=== PATIENT | male | born 1965 | race African-American/Black ===

== ENCOUNTER 2016-12-12 16:23 | Inpatient (IN) | payer OTHER ==
[2016-12-12 18:39] VITALS: BMI 25.8
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
[2016-12-12] MEDS ORDERED: P-EPHED 60MG/TRIPROLIDI 2.5MG TABLET PO PRN (19:55)
[2016-12-12] MEDS ORDERED: hydrOXYzine PAMOATE 50 MG CAPSULE (FP) PO PRN (19:55)
[2016-12-12] MEDS ORDERED: ACETAMINOPHEN 325 MG TABLET (FP) PO PRN (19:55)
[2016-12-12] MEDS ORDERED: MENTHOL/PHENOL 1 EACH UD MM PRN (19:55)
[2016-12-12] MEDS ORDERED: guaiFENesin/D-METHORPHAN HB 10 ML UNIT-DOSE CUPS PO PRN (19:55)
[2016-12-12] MEDS ORDERED: NICOTINE POLACRILEX 4 MG GUM BUC PRN (19:55)
[2016-12-12] MEDS ORDERED: MAGNESIUM HYDROX 2400MG/30ML ORAL SUSPENSION 30 ML CUP PO PRN (19:55)
[2016-12-12] MEDS ORDERED: chlordiazePOXIDE HCL 25 MG CAPSULE PO PRN (19:55)
[2016-12-12] MEDS ORDERED: LOPERAMIDE HCL 2 MG CAPSULE PO PRN (19:55)
[2016-12-12] MEDS ORDERED: NICOTINE 21 MG/24 HOURS TOPICAL PATCH TD PRN (19:55)
[2016-12-12] MEDS ORDERED: MAG HYDROX/AL HYDROX/SIMETH 30 ML UNIT-DOSE CUP PO PRN (19:55)
[2016-12-12] MEDS ORDERED: diphenhydrAMINE HCL 50 MG CAPSULE PO PRN (19:55)
[2016-12-12] MEDS ORDERED: MAGNESIUM CITRATE 300 ML BOTTLE PO PRN (19:55)
[2016-12-12] MEDS ORDERED: ALBUTEROL SO4 2.5/IPRATROPIUM 0.5 INH SOL 3 ML VIAL.NEB. NEB PRN (19:58)
[2016-12-12] MEDS ORDERED: ALBUTEROL SO4 6.7 GM HFA INHALER IH PRN (19:58)
[2016-12-12] MEDS ORDERED: INSULIN (NOVOLOG) ASPART 100 UNITS/ML 10ML VIAL ONE (20:52)
[2016-12-12] MEDS: MONTELUKAST NA 10 MG TABLET PO SCH (21:01)
[2016-12-12] MEDS: THIAMINE HCL 100 MG TABLET (FP) PO SCH (21:01)
[2016-12-12] MEDS: ATORVASTATIN CA 10 MG TABLET (FP) PO SCH (21:01)
[2016-12-12] MEDS: RANITIDINE HCL 150 MG TABLET (FP) PO SCH (21:01)
[2016-12-12] MEDS: GABAPENTIN 300 MG CAPSULE (FP) PO SCH (21:01)
[2016-12-12] MEDS: INSULIN DETEMIR 100 UNITS/ML MDV SQ SCH (21:03)
[2016-12-12] MEDS: INSULIN SLIDING SCALE (NOVOLOG) 1 VIAL SQ SCH (21:03)
[2016-12-12] MEDS: chlordiazePOXIDE HCL 25 MG CAPSULE PO SCH (23:44)
[2016-12-13] MEDS: chlordiazePOXIDE HCL 25 MG CAPSULE PO SCH ×4 (05:38→22:31)
[2016-12-13] MEDS: GABAPENTIN 300 MG CAPSULE (FP) PO SCH ×4 (05:38→22:32)
[2016-12-13] MEDS: INSULIN SLIDING SCALE (NOVOLOG) 1 VIAL SQ SCH ×4 (07:54→22:39)
[2016-12-13] MEDS: PRENATAL VITAMINS W/ FOLIC ACID TABLET (FP) PO SCH (10:09)
[2016-12-13] MEDS: metFORMIN HCL 500 MG TABLET (FP) PO SCH ×2 (10:09→17:33)
[2016-12-13] MEDS: RANITIDINE HCL 150 MG TABLET (FP) PO SCH ×2 (10:09→22:32)
[2016-12-13] MEDS: TAMSULOSIN HCL 0.4 MG CAP.ER.24H (FP) PO SCH (10:09)
[2016-12-13 10:19] LABS: MCH 26.1 pg (25.7-33.7); MCHC 32.6 g/dl (32.0-35.9); MEAN CELL VOLUME 80.3 fl (80-96); MEAN PLT VOLUME 10.9 fl (7.5-11.1); PLATELET COUNT 239 K/MM3 (134-434); RDW 14.5 % (11.9-15.9)
[2016-12-13 10:29] LABS: ALBUMIN 2.5 g/dl (3.4-5.0); ALK PHOS 79 U/L (45-117); ANION GAP 8 (8-16); BILIRUBIN,TOTAL 0.2 mg/dL (0.2-1.0); CALCIUM 9.1 mg/dL (8.5-10.1); CO2 31 mmol/L (21-32); CREATININE 1.4 mg/dL (0.7-1.3); GLUCOSE,RANDOM 87 mg/dL (74-106); SGOT/AST 10 U/L (15-37); SGPT/ALT 15 U/L (12-78); TOT PROT 5.5 g/dl (6.4-8.2)
--- NOTE | 2016-12-13 10:50 | PN ---
S CIWA - CIWA Score Nausea/Vomitin-No Nausea/No Vomiting Muscle Tremors: 4-Moderate,w/Arms Extend Anxiety: 4-Mod. Anxious/Guarded Agitation: 4-Moderately Restless Paroxysmal Sweats: 3 Orientation: 0-Oriented Tacttile Disturbances: 0-None Auditory Disturbances: 0-None Visual Disturbances: 0-None Headache: 0-None Present CIWA-Ar Total Score: 15 BHS Progress Note (SOAP) Subjective: agitation anxiety sweats interrupted sleep tired Objective: 12/13/16 10:49 Vital Signs Temperature 96.8 F L 12/13/16 10:00 Pulse Rate 86 12/13/16 10:00 Respiratory Rate 18 12/13/16 10:00 Blood Pressure 131/82 12/13/16 10:00 O2 Sat by Pulse Oximetry (%) Laboratory Tests 12/12/16 12/12/16 12/13/16 20:01 20:48 05:44 Sodium Potassium Chloride Carbon Dioxide Anion Gap BUN Creatinine Creat Clearance w eGFR POC Glucometer > 600 549 86 Random Glucose Calcium Total Bilirubin AST ALT Alkaline Phosphatase Total Protein Albumin 12/13/16 07:00 Sodium 141 Potassium 3.6 Chloride 102 Carbon Dioxide 31 Anion Gap 8 BUN 15 Creatinine 1.4 H Creat Clearance w eGFR 53.43 POC Glucometer Random Glucose 87 D Calcium 9.1 Total Bilirubin 0.2 D AST 10 L D ALT 15 D Alkaline Phosphatase 79 Total Protein 5.5 L Albumin 2.5 L rest of labs pending awake/alert ambulating no acute distress Assessment: 12/13/16 10:50 withdrawal sx Plan: continue detox increase fluids labs pending
[2016-12-13] MEDS ORDERED: INSULIN (NOVOLOG) ASPART 100 UNITS/ML 10ML VIAL ONE ×2 (11:48→17:00)
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
[2016-12-13] MEDS ORDERED: GABAPENTIN 300 MG CAPSULE (FP) PO SCH (15:04)
[2016-12-13 16:06] LABS: URINE APPEARANCE SLCLOUDY; URINE BILIRUBIN NEGATIVE (NEGATIVE); URINE BLOOD NEGATIVE (NEGATIVE); URINE COLOR YELLOW; URINE GLUCOSE (UA) 3+ (NEGATIVE); URINE KETONE NEGATIVE (NEGATIVE); URINE LEUK ESTERASE NEGATIVE (NEGATIVE); URINE NITRITE NEGATIVE (NEGATIVE); URINE UROBILINOGEN NEGATIVE mg/dL (0.2-1.0)
[2016-12-13 16:12] LABS: URINE PROTEIN 3+ (NEGATIVE)
[2016-12-13 16:20] LABS: URINE MUCUS RARE; URINE RBC 2 /hpf (0-3); URINE WBC 3 /hpf (3-5)
[2016-12-13] MEDS: ATORVASTATIN CA 10 MG TABLET (FP) PO SCH (22:32)
[2016-12-13] MEDS: THIAMINE HCL 100 MG TABLET (FP) PO SCH (22:32)
[2016-12-13] MEDS: INSULIN DETEMIR 100 UNITS/ML MDV SQ SCH (22:33)
[2016-12-13] MEDS: MONTELUKAST NA 10 MG TABLET PO SCH (22:33)
[2016-12-14] MEDS ORDERED: INSULIN (NOVOLOG) ASPART 100 UNITS/ML 10ML VIAL ONE ×2 (05:37→16:35)
[2016-12-14] MEDS: chlordiazePOXIDE HCL 25 MG CAPSULE PO SCH ×3 (05:44→16:39)
[2016-12-14] MEDS: INSULIN SLIDING SCALE (NOVOLOG) 1 VIAL SQ SCH ×4 (07:13→22:48)
[2016-12-14] MEDS: metFORMIN HCL 500 MG TABLET (FP) PO SCH ×2 (07:13→16:36)
--- NOTE | 2016-12-14 09:22 | PN ---
S CIWA - CIWA Score Nausea/Vomitin-No Nausea/No Vomiting Muscle Tremors: 4-Moderate,w/Arms Extend Anxiety: 3 Agitation: 3 Paroxysmal Sweats: 3 Orientation: 0-Oriented Tacttile Disturbances: 0-None Auditory Disturbances: 0-None Visual Disturbances: 0-None Headache: 0-None Present CIWA-Ar Total Score: 13 S Progress Note (SOAP) Subjective: sweats irritable I need to see a dietitian for consultation regarding food I can eat since I wake up so hungry and i am a diabetic. agitation Objective: 12/14/16 09:28 Vital Signs Temperature 97.1 F L 12/14/16 06:19 Pulse Rate 71 12/14/16 06:19 Respiratory Rate 18 12/14/16 06:19 Blood Pressure 143/77 12/14/16 06:19 O2 Sat by Pulse Oximetry (%) Laboratory Tests 12/12/16 12/12/16 12/13/16 20:01 20:48 05:44 WBC RBC Hgb Hct MCV MCH MCHC RDW Plt Count MPV Sodium Potassium Chloride Carbon Dioxide Anion Gap BUN Creatinine Creat Clearance w eGFR POC Glucometer > 600 549 86 Random Glucose Calcium Total Bilirubin AST ALT Alkaline Phosphatase Total Protein Albumin Urine Color Urine Appearance Urine pH Ur Specific [place] Urine Protein Urine Glucose (UA) Urine Ketones Urine Blood Urine Nitrite Urine Bilirubin Urine Urobilinogen Ur Leukocyte Esterase Urine RBC Urine WBC Ur Epithelial Cells Urine Mucus RPR Titer 12/13/16 12/13/16 12/13/16 07:00 07:00 07:00 WBC 8.0 RBC 4.84 Hgb 12.7 D Hct 38.9 MCV 80.3 MCH 26.1 MCHC 32.6 RDW 14.5 Plt Count 239 MPV 10.9 Sodium 141 Potassium 3.6 Chloride 102 Carbon Dioxide 31 Anion Gap 8 BUN 15 Creatinine 1.4 H Creat Clearance w eGFR 53.43 POC Glucometer Random Glucose 87 D Calcium 9.1 Total Bilirubin 0.2 D AST 10 L D ALT 15 D Alkaline Phosphatase 79 Total Protein 5.5 L Albumin 2.5 L Urine Color Urine Appearance Urine pH Ur Specific [place] Urine Protein Urine Glucose (UA) Urine Ketones Urine Blood Urine Nitrite Urine Bilirubin Urine Urobilinogen Ur Leukocyte Esterase Urine RBC Urine WBC Ur Epithelial Cells Urine Mucus RPR Titer Nonreactive 12/13/16 12/13/16 12/14/16 10:50 11:43 05:11 WBC RBC Hgb Hct MCV MCH MCHC RDW Plt Count MPV Sodium Potassium Chloride Carbon Dioxide Anion Gap BUN Creatinine Creat Clearance w eGFR POC Glucometer 265 277 Random Glucose Calcium Total Bilirubin AST ALT Alkaline Phosphatase Total Protein Albumin Urine Color Yellow Urine Appearance Slcloudy Urine pH 5.0 Ur Specific [place] >= 1.030 H Urine Protein 3+ H Urine Glucose (UA) 3+ H Urine Ketones Negative Urine Blood Negative Urine Nitrite Negative Urine Bilirubin Negative Urine Urobilinogen Negative Ur Leukocyte Esterase Negative Urine RBC 2 Urine WBC 3 Ur Epithelial Cells Rare Urine Mucus Rare RPR Titer repeat u/a awake/alert ambulating no acute distress Assessment: 12/14/16 09:29 withdrawal sx Plan: continue detox increase fluids dietary consult ordered glucerna with meals lactaid milk
[2016-12-14] MEDS: GABAPENTIN 300 MG CAPSULE (FP) PO SCH ×2 (10:31→22:49)
[2016-12-14] MEDS: TAMSULOSIN HCL 0.4 MG CAP.ER.24H (FP) PO SCH (10:31)
[2016-12-14] MEDS: PRENATAL VITAMINS W/ FOLIC ACID TABLET (FP) PO SCH (10:31)
[2016-12-14] MEDS: RANITIDINE HCL 150 MG TABLET (FP) PO SCH ×2 (10:31→22:49)
--- NOTE | 2016-12-14 20:03 | EKG ---
Test Reason : Blood Pressure : / mmHG Vent. Rate : 084 BPM Atrial Rate : 084 BPM P-R Int : 118 ms QRS Dur : 094 ms QT Int : 450 ms P-R-T Axes : 050 031 090 degrees QTc Int : 531 ms NORMAL SINUS RHYTHM VOLTAGE CRITERIA FOR LEFT VENTRICULAR HYPERTROPHY PROLONGED QT ABNORMAL ECG NO PREVIOUS ECGS AVAILABLE Confirmed by LUPE LEMUS MD ([id number]) on 12/14/2016 8:02:24 PM Referred By: Chandana Gary Confirmed By:LUPE LEMUS MD
[2016-12-14] MEDS: THIAMINE HCL 100 MG TABLET (FP) PO SCH (22:49)
[2016-12-14] MEDS: ATORVASTATIN CA 10 MG TABLET (FP) PO SCH (22:49)
[2016-12-14] MEDS: chlordiazePOXIDE 5 MG CAPSULE PO SCH (22:49)
[2016-12-14] MEDS: MONTELUKAST NA 10 MG TABLET PO SCH (22:49)
[2016-12-14] MEDS: INSULIN DETEMIR 100 UNITS/ML MDV SQ SCH (22:50)
[2016-12-15] MEDS: chlordiazePOXIDE 5 MG CAPSULE PO SCH ×3 (05:24→18:29)
[2016-12-15] MEDS: metFORMIN HCL 500 MG TABLET (FP) PO SCH ×2 (07:30→18:29)
[2016-12-15] MEDS: INSULIN SLIDING SCALE (NOVOLOG) 1 VIAL SQ SCH ×4 (07:30→22:10)
[2016-12-15] MEDS: TAMSULOSIN HCL 0.4 MG CAP.ER.24H (FP) PO SCH (09:46)
[2016-12-15] MEDS: GABAPENTIN 300 MG CAPSULE (FP) PO SCH ×2 (09:47→22:04)
[2016-12-15] MEDS: RANITIDINE HCL 150 MG TABLET (FP) PO SCH ×2 (09:47→22:04)
[2016-12-15] MEDS: PRENATAL VITAMINS W/ FOLIC ACID TABLET (FP) PO SCH (09:47)
--- NOTE | 2016-12-15 10:49 | PN ---
BHS Progress Note (SOAP) Subjective: sweats anxious Objective: 12/15/16 10:48 Vital Signs Temperature 97.7 F 12/15/16 10:31 Pulse Rate 90 12/15/16 10:31 Respiratory Rate 16 12/15/16 10:31 Blood Pressure 143/88 12/15/16 10:31 O2 Sat by Pulse Oximetry (%) awake/alert ambulating no acute distress Assessment: 12/15/16 10:49 mild withdrawal sx Plan: continue detox increase fluids d/c in am
[2016-12-15] MEDS ORDERED: INSULIN (NOVOLOG) ASPART 100 UNITS/ML 10ML VIAL ONE ×2 (12:08→22:09)
[2016-12-15] MEDS: MONTELUKAST NA 10 MG TABLET PO SCH (22:04)
[2016-12-15] MEDS: INSULIN DETEMIR 100 UNITS/ML MDV SQ SCH (22:04)
[2016-12-15] MEDS: THIAMINE HCL 100 MG TABLET (FP) PO SCH (22:04)
[2016-12-15] MEDS: chlordiazePOXIDE HCL 10 MG CAPSULE PO SCH (22:04)
[2016-12-15] MEDS: ATORVASTATIN CA 10 MG TABLET (FP) PO SCH (22:04)
[2016-12-16] MEDS: metFORMIN HCL 500 MG TABLET (FP) PO SCH (06:46)
[2016-12-16] MEDS: chlordiazePOXIDE HCL 10 MG CAPSULE PO SCH (06:46)
[2016-12-16] MEDS: INSULIN SLIDING SCALE (NOVOLOG) 1 VIAL SQ SCH (06:47)
--- NOTE | 2016-12-16 10:06 | DS ---
[facility] Detox Discharge Summary Admission Date: 12/12/16 Discharge Date: 12/16/16 - History Present History: Alcohol Dependence, Cannabis Dependence, Cocaine Dependence - Physical Exam Results Vital Signs: Vital Signs Temperature 97.7 F 12/16/16 06:00 Pulse Rate 78 12/16/16 07:30 Respiratory Rate 18 12/16/16 07:30 Blood Pressure 146/85 12/16/16 07:30 O2 Sat by Pulse Oximetry (%) - Treatment Hospital Course: Detox Protocol Followed, Detoxed Safely, Responded well, Discharged Condition Good, Rehab Referral Accepted - Medication Discharge Medications: Ambulatory Orders Gemfibrozil [Lopid -] 600 mg PO BID 03/30/13 Metformin HCl [Glucophage] 1,000 mg PO BID 03/30/13 Montelukast Na [Singulair -] 10 mg PO HS 03/30/13 Diltiazem HCl [Cardizem Cd] 240 mg PO DAILY #30 cap.er.24h 08/28/13 Albuterol Sulfate Inhaler - [Ventolin HFA Inhaler -] 2 inh PO Q4H PRN 01/15/14 Insulin Glargine,Hum.rec.anlog [Lantus Solostar PEN -] 50 units SQ HS 01/15/14 Omeprazole [Prilosec (RX)] 40 mg PO DAILY 01/15/14 Gabapentin [Neurontin -] 900 mg PO Q8H 03/15/14 Glipizide [Glucotrol -] 10 mg PO BID 03/15/14 Hydrochlorothiazide [Hctz -] 25 mg PO DAILY 03/15/14 Salmeterol/Fluticasone [Advair 500Mcg/50Mcg] 1 inh PO BID 03/15/14 Tiotropium [place] [Spiriva -] 2 inh PO DAILY 03/15/14 Clonidine HCl [Catapres] 0.2 mg PO BID 07/08/15 Insulin (Novolog) [Novolog] 14 units SQ AC 07/08/15 Loratadine [Claritin -] 10 mg PO DAILY PRN 07/08/15 - Diagnosis (1) Alcohol dependence with uncomplicated withdrawal Current Visit: Yes Status: Chronic (2) Nicotine dependence Current Visit: Yes Status: Chronic Qualifiers: Nicotine product type: cigarettes Substance use status: uncomplicated Qualified Code(s): F17.210 - Nicotine dependence, cigarettes, uncomplicated (3) Asthma Current Visit: Yes Status: Chronic Qualifiers: Asthma severity: mild persistent Asthma complication type: uncomplicated Qualified Code(s): J45.30 - Mild persistent asthma, uncomplicated (4) BPH (benign prostatic hyperplasia) Current Visit: Yes Status: Chronic Qualifiers: Lower urinary tract symptom presence: symptoms present Lower urinary tract symptom detail: post-void dribbling Qualified Code(s): N40.1 - Benign prostatic hyperplasia with lower urinary tract symptoms; R35.0 - Frequency of micturition (5) COPD (chronic obstructive pulmonary disease) Current Visit: Yes Status: Chronic Qualifiers: COPD type: emphysema Emphysema type: unilateral Qualified Code(s ): J43.0 - Unilateral pulmonary emphysema [MacLeod's syndrome] (6) Cocaine dependence, uncomplicated Current Visit: Yes Status: Chronic (7) Essential hypertension Current Visit: Yes Status: Chronic (8) Gastroesophageal reflux disease Current Visit: Yes Status: Chronic Qualifiers: Esophagitis presence: without esophagitis Qualified Code(s): K21.9 - Gastro-esophageal reflux disease without esophagitis - AMA Did Patient Leave Against Medical Advice: [facility] ([facility])
[2016-12-16] MEDS: RANITIDINE HCL 150 MG TABLET (FP) PO SCH (10:25)
[2016-12-16] MEDS: GABAPENTIN 300 MG CAPSULE (FP) PO SCH (10:26)
[2016-12-16] MEDS: TAMSULOSIN HCL 0.4 MG CAP.ER.24H (FP) PO SCH (10:27)
[2016-12-16] MEDS: PRENATAL VITAMINS W/ FOLIC ACID TABLET (FP) PO SCH (10:27)
[2016-12-16 10:30] VITALS: BP 158/89; PULSE 95; TEMP 98.2
== END 2016-12-16 10:43 | disposition home or self-care (01) | DRG 897 ==
LOC: YASAS 16:23 → Y6N 19:54
PROVIDERS: ADMIT Internal Medicine; ATTEND Internal Medicine
PROC: HZ2ZZZZ Detoxification Services for Substance Abuse Treatment (ICD-10-PCS; principal; 2016-12-12)
DX: F10.230 Alcohol dependence with withdrawal, uncomplicated (principal); F14.20 Cocaine dependence, uncomplicated; F17.210 Nicotine dependence, cigarettes, uncomplicated; J43.0 Unilateral pulmonary emphysema [MacLeod's syndrome]; J45.30 Mild persistent asthma, uncomplicated; N40.1 Benign prostatic hyperplasia with lower urinary tract symptoms; R35.0 Frequency of micturition; I10 Essential (primary) hypertension; K21.9 Gastro-esophageal reflux disease without esophagitis; E11.42 Type 2 diabetes mellitus with diabetic polyneuropathy; E78.00 Pure hypercholesterolemia, unspecified; G62.9 Polyneuropathy, unspecified; M54.5 Low back pain; R00.0 Tachycardia, unspecified; R26.2 Difficulty in walking, not elsewhere classified; H26.9 Unspecified cataract; Z99.89 Dependence on other enabling machines and devices; Z79.4 Long term (current) use of insulin; Z79.84 Long term (current) use of oral hypoglycemic drugs; Z88.8 Allergy status to other drugs, medicaments and biological substances; Z88.6 Allergy status to analgesic agent; Z91.14 Patient's other noncompliance with medication regimen
CPT/HCPCS: 36415; 80053; 81003; 81015; 85027; 86593; 93005; 93010

== ENCOUNTER 2018-05-29 14:14 | Inpatient (IN) | payer OTHER ==
[2018-05-29 17:32] VITALS: BMI 28.3
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
[2018-05-29] MEDS ORDERED: MAG HYDROX/AL HYDROX/SIMETH 30 ML UNIT-DOSE CUP PO PRN (19:50)
[2018-05-29] MEDS ORDERED: diazePAM 5 MG TABLET PO PRN (19:50)
[2018-05-29] MEDS ORDERED: P-EPHED 60MG/TRIPROLIDI 2.5MG TABLET PO PRN (19:50)
[2018-05-29] MEDS ORDERED: MENTHOL/PHENOL 1 EACH UD MM PRN (19:50)
[2018-05-29] MEDS ORDERED: ACETAMINOPHEN 325 MG TABLET (FP) PO PRN (19:50)
[2018-05-29] MEDS ORDERED: MAGNESIUM CITRATE 300 ML BOTTLE PO PRN (19:50)
[2018-05-29] MEDS ORDERED: MAGNESIUM HYDROX 2400MG/30ML ORAL SUSPENSION 30 ML CUP PO PRN (19:50)
[2018-05-29] MEDS ORDERED: guaiFENesin/D-METHORPHAN HB 10 ML UNIT-DOSE CUPS PO PRN (19:50)
[2018-05-29] MEDS ORDERED: NICOTINE POLACRILEX 2 MG GUM BC PRN (19:50)
[2018-05-29] MEDS ORDERED: ALBUTEROL SO4 0.083% IH SOL 2.5 MG/3 ML VIAL.NEB. NEB PRN (20:08)
[2018-05-29] MEDS: BUDESONIDE/FORMETEROL FUMARATE 160/4.5 mcg INHALER IH SCH (21:51)
[2018-05-29] MEDS: metFORMIN HCL 500 MG TABLET (FP) PO SCH (21:51)
[2018-05-29] MEDS: diazePAM 5 MG TABLET PO SCH (21:52)
[2018-05-29] MEDS: MONTELUKAST NA 10 MG TABLET PO SCH (21:52)
[2018-05-29] MEDS: CLOPIDOGREL BISULFATE 75 MG TABLET (FP) PO SCH (21:52)
[2018-05-29] MEDS: CYCLOBENZAPRINE HCL 5 MG TABLET PO PRN (21:53)
[2018-05-29] MEDS: cloNIDine HCL 0.1 MG TABLET PO PRN (21:54)
[2018-05-29] MEDS: THIAMINE HCL 100 MG TABLET (FP) PO SCH (21:54)
[2018-05-29] MEDS: ALBUTEROL SO4 8 GM HFA INHALER IH PRN (21:59)
[2018-05-29] MEDS ORDERED: MELATONIN 5 MG TABLETS PO PRN (22:00)
[2018-05-29] MEDS: INSULIN (LEVEMIR) 100 UNITS/ML UNITS SQ SCH (22:07)
[2018-05-29] MEDS: INSULIN SLIDING SCALE (NOVOLOG) 1 VIAL SQ SCH (22:08)
[2018-05-30] MEDS: diazePAM 5 MG TABLET PO SCH ×3 (05:46→22:17)
[2018-05-30] MEDS: INSULIN SLIDING SCALE (NOVOLOG) 1 VIAL SQ SCH ×4 (07:09→22:21)
[2018-05-30] MEDS: PANTOPRAZOLE 40 MG TABLET (FP) PO SCH (07:09)
[2018-05-30] MEDS: metFORMIN HCL 500 MG TABLET (FP) PO SCH ×2 (07:09→16:40)
[2018-05-30] MEDS ORDERED: HYDROCHLOROTHIAZIDE 25 MG TABLET (FP) PO SCH (10:00)
[2018-05-30] MEDS: CLOPIDOGREL BISULFATE 75 MG TABLET (FP) PO SCH (10:29)
[2018-05-30] MEDS: TIOTROPIUM BROMIDE 2.5 MCG (SPIRIVA) RESPIMAT INHALER IH SCH (10:29)
[2018-05-30] MEDS: PRENATAL VITAMINS W/ FOLIC ACID TABLET (FP) PO SCH (10:29)
[2018-05-30] MEDS: BUDESONIDE/FORMETEROL FUMARATE 160/4.5 mcg INHALER IH SCH ×2 (10:32→22:17)
[2018-05-30 10:33] LABS: ALBUMIN 2.1 g/dl (3.4-5.0); ALK PHOS 92 U/L (45-117); ANION GAP 9 MMOL/L (8-16); BILIRUBIN,TOTAL 0.2 mg/dL (0.2-1); BLOOD UREA NITROGEN 22 mg/dL (7-18); CALCIUM 8.5 mg/dL (8.5-10.1); CHLORIDE 104 mmol/L (98-107); CO2 30 mmol/L (21-32); CREATININE 1.6 mg/dL (0.55-1.3); GLUCOSE,RANDOM 90 mg/dL (74-106); POTASSIUM 3.3 mmol/L (3.5-5.1); SGOT/AST 17 U/L (15-37); SGPT/ALT 21 U/L (13-61); SODIUM 143 mmol/L (136-145); TOT PROT 5.1 g/dl (6.4-8.2)
[2018-05-30 12:19] LABS: HEMATOCRIT 32.9 % (35.4-49); HEMOGLOBIN 11.3 GM/dL (11.7-16.9); MCH 27.2 pg (25.7-33.7); MCHC 34.5 g/dl (32.0-35.9); MEAN CELL VOLUME 78.7 fl (80-96); MEAN PLT VOLUME 10.5 fl (7.5-11.1); PLATELET COUNT 253 K/MM3 (134-434); RBC 4.18 M/mm3 (4.00-5.60); RDW 15.5 % (11.9-15.9); WHITE BLOOD COUNT 9.7 K/mm3 (4.0-10.0)
--- NOTE | 2018-05-30 13:25 | PN ---
S CIWA - CIWA Score Nausea/Vomitin-No Nausea/No Vomiting Muscle Tremors: 1-None Visible, but [place] Anxiety: 1-Mildly Anxious Agitation: 0-Normal Activity Paroxysmal Sweats: 1-Minimal Palms Moist Orientation: 0-Oriented Tacttile Disturbances: 0-None Auditory Disturbances: 0-None Visual Disturbances: 0-None Headache: 0-None Present CIWA-Ar Total Score: 3 BHS Progress Note (SOAP) Subjective: pt doing well. Here for detox from alcohol. Says will go to rehab from here O: Vital Signs - 24 hr 05/29/18 05/29/18 05/30/18 17:30 22:00 00:30 Temperature 97.7 F 99.2 F Pulse Rate 91 H 93 H Respiratory 18 18 18 Rate Blood Pressure 183/96 H 176/92 H 05/30/18 05/30/18 06:08 09:16 Temperature 97.0 F L 98.2 F Pulse Rate 76 79 Respiratory 18 20 Rate Blood Pressure 140/78 121/69 Laboratory Tests 05/29/18 05/29/18 05/30/18 17:54 21:17 05:44 WBC RBC Hgb Hct MCV MCH MCHC RDW Plt Count MPV Sodium Potassium Chloride Carbon Dioxide Anion Gap BUN Creatinine Creat Clearance w eGFR POC Glucometer 570 525 111 Random Glucose Calcium Total Bilirubin AST ALT Alkaline Phosphatase Total Protein Albumin 05/30/18 05/30/18 05/30/18 07:00 07:00 11:12 WBC 9.7 RBC 4.18 Hgb 11.3 L Hct 32.9 L D MCV 78.7 L MCH 27.2 MCHC 34.5 RDW 15.5 Plt Count 253 MPV 10.5 Sodium 143 Potassium 3.3 L Chloride 104 Carbon Dioxide 30 Anion Gap 9 BUN 22 H Creatinine 1.6 H Creat Clearance w eGFR 45.44 POC Glucometer 95 Random Glucose 90 Calcium 8.5 Total Bilirubin 0.2 AST 17 ALT 21 Alkaline Phosphatase 92 Total Protein 5.1 L Albumin 2.1 L anemia low potassium renal insufficiency low albumin EKG: QTc- 540msec, 2016 QTc- 527 a/p: alcohol detox protocol prolonged Qtc, same in 2016- will check Mag level tomorrow, give K supplement d/w pt- may need cardiology consult Hold HCTZ for now
[2018-05-30] MEDS ORDERED: POTASSIUM CHLORIDE TABS 20 MEQ TABLET.ER (FP) PO ONE (14:01)
[2018-05-30] MEDS ORDERED: LOPERAMIDE HCL 2 MG CAPSULE PO PRN (14:53)
--- NOTE | 2018-05-30 14:54 | EKG ---
Test Reason : Blood Pressure : / mmHG Vent. Rate : 089 BPM Atrial Rate : 089 BPM P-R Int : 128 ms QRS Dur : 092 ms QT Int : 416 ms P-R-T Axes : 054 043 114 degrees QTc Int : 506 ms NORMAL SINUS RHYTHM MODERATE VOLTAGE CRITERIA FOR LVH, MAY BE NORMAL VARIANT T WAVE ABNORMALITY, CONSIDER LATERAL ISCHEMIA PROLONGED QT ABNORMAL ECG WHEN COMPARED WITH ECG OF 12-DEC-2016 20:13, T WAVE INVERSION MORE EVIDENT IN LATERAL LEADS Confirmed by BERTIN ROBLES, YISSEL ([id number]) on 05/30/2018 2:54:36 PM Referred By: Confirmed By:YISSEL DENTON MD
--- NOTE | 2018-05-30 19:07 | EKG ---
Test Reason : Blood Pressure : / mmHG Vent. Rate : 083 BPM Atrial Rate : 083 BPM P-R Int : 124 ms QRS Dur : 092 ms QT Int : 460 ms P-R-T Axes : 054 038 132 degrees QTc Int : 540 ms NORMAL SINUS RHYTHM T WAVE ABNORMALITY, CONSIDER LATERAL ISCHEMIA PROLONGED QT ABNORMAL ECG WHEN COMPARED WITH ECG OF 29-MAY-2018 21:02, NO SIGNIFICANT CHANGE WAS FOUND Confirmed by BERTIN ORBLES, YISSEL ([id number]) on 05/30/2018 7:07:32 PM Referred By: Confirmed By:YISSEL DENTON MD
[2018-05-30] MEDS: ALBUTEROL SO4 8 GM HFA INHALER IH PRN (22:17)
[2018-05-30] MEDS: MONTELUKAST NA 10 MG TABLET PO SCH (22:17)
[2018-05-30] MEDS: THIAMINE HCL 100 MG TABLET (FP) PO SCH (22:17)
[2018-05-30] MEDS: INSULIN (LEVEMIR) 100 UNITS/ML UNITS SQ SCH (22:19)
[2018-05-31] MEDS: metFORMIN HCL 500 MG TABLET (FP) PO SCH ×2 (06:12→16:53)
[2018-05-31] MEDS: INSULIN SLIDING SCALE (NOVOLOG) 1 VIAL SQ SCH ×4 (06:15→21:38)
[2018-05-31] MEDS: PANTOPRAZOLE 40 MG TABLET (FP) PO SCH (06:20)
[2018-05-31] MEDS ORDERED: diazePAM 5 MG TABLET PO SCH (10:00)
[2018-05-31] MEDS ORDERED: POTASSIUM CHLORIDE TABS 20 MEQ TABLET.ER (FP) PO SCH (10:00)
[2018-05-31] MEDS: TIOTROPIUM BROMIDE 2.5 MCG (SPIRIVA) RESPIMAT INHALER IH SCH (10:27)
[2018-05-31] MEDS: diazePAM 5 MG TABLET PO SCH (10:28)
[2018-05-31] MEDS: PRENATAL VITAMINS W/ FOLIC ACID TABLET (FP) PO SCH (10:28)
[2018-05-31] MEDS: CLOPIDOGREL BISULFATE 75 MG TABLET (FP) PO SCH (10:28)
[2018-05-31] MEDS: BUDESONIDE/FORMETEROL FUMARATE 160/4.5 mcg INHALER IH SCH ×2 (10:28→21:41)
[2018-05-31] MEDS: ALBUTEROL SO4 8 GM HFA INHALER IH PRN ×2 (10:28→21:42)
[2018-05-31 10:57] LABS: ANION GAP 7 MMOL/L (8-16); BLOOD UREA NITROGEN 22 mg/dL (7-18); CHLORIDE 108 mmol/L (98-107); CO2 29 mmol/L (21-32); CREATININE 1.5 mg/dL (0.55-1.3); GLUCOSE,RANDOM 82 mg/dL (74-106); MAGNESIUM 1.9 mg/dL (1.8-2.4); POTASSIUM 3.9 mmol/L (3.5-5.1); SODIUM 144 mmol/L (136-145)
--- NOTE | 2018-05-31 15:26 | PN ---
[facility] CIWA - CIWA Score Nausea/Vomitin-No Nausea/No Vomiting Muscle Tremors: None Anxiety: 2 Agitation: 0-Normal Activity Paroxysmal Sweats: 3 Orientation: 2-Disoriented Date<2 days Tacttile Disturbances: 2-Mild Itch/Numbness/Burn Auditory Disturbances: 0-None Visual Disturbances: 2-Mild Sensitivity Headache: 0-None Present CIWA-Ar Total Score: 11 S Progress Note (SOAP) Subjective: Interrupted Sleep, Sweating, Fatigue, Diarrhea, Body Aches. Objective: PATIENT A & O X 2 (UNCERTAIN ABOUT CURRENT DAY / DATE). IN NO ACUTE DISTRESS. 05/31/18 15:29 Vital Signs Temperature 97.1 F L 05/31/18 13:17 Pulse Rate 92 H 05/31/18 13:17 Respiratory Rate 18 05/31/18 13:17 Blood Pressure 145/87 05/31/18 13:17 O2 Sat by Pulse Oximetry (%) Laboratory Tests 05/29/18 05/29/18 05/30/18 17:54 21:17 05:44 WBC RBC Hgb Hct MCV MCH MCHC RDW Plt Count MPV Sodium Potassium Chloride Carbon Dioxide Anion Gap BUN Creatinine Creat Clearance w eGFR POC Glucometer 570 525 111 Random Glucose Calcium Magnesium Total Bilirubin AST ALT Alkaline Phosphatase Total Protein Albumin RPR Titer 05/30/18 05/30/18 05/30/18 07:00 07:00 07:00 WBC 9.7 RBC 4.18 Hgb 11.3 L Hct 32.9 L D MCV 78.7 L MCH 27.2 MCHC 34.5 RDW 15.5 Plt Count 253 MPV 10.5 Sodium 143 Potassium 3.3 L Chloride 104 Carbon Dioxide 30 Anion Gap 9 BUN 22 H Creatinine 1.6 H Creat Clearance w eGFR 45.44 POC Glucometer Random Glucose 90 Calcium 8.5 Magnesium Total Bilirubin 0.2 AST 17 ALT 21 Alkaline Phosphatase 92 Total Protein 5.1 L Albumin 2.1 L RPR Titer Nonreactive 05/30/18 05/30/18 05/30/18 11:12 16:36 20:10 WBC RBC Hgb Hct MCV MCH MCHC RDW Plt Count MPV Sodium Potassium Chloride Carbon Dioxide Anion Gap BUN Creatinine Creat Clearance w eGFR POC Glucometer 95 176 185 Random Glucose Calcium Magnesium Total Bilirubin AST ALT Alkaline Phosphatase Total Protein Albumin RPR Titer 01/05/31/18 05/31/18 06:14 07:00 11:30 WBC RBC Hgb Hct MCV MCH MCHC RDW Plt Count MPV Sodium 144 Potassium 3.9 Chloride 108 H Carbon Dioxide 29 Anion Gap 7 L BUN 22 H Creatinine 1.5 H Creat Clearance w eGFR 48.95 POC Glucometer 97 149 Random Glucose 82 Calcium 9.0 Magnesium 1.9 Total Bilirubin AST ALT Alkaline Phosphatase Total Protein Albumin RPR Titer LABS NOTED. K AND MG LEVELS NOTED TO BE WITHIN NORMAL RANGE. Assessment: 05/31/18 15:30 WITHDRAWAL SYMPTOMS. HYPERTENSION. QT PROLONGATION. 05/31/18 15:34 Plan: CONTINUE DETOX. PER RECOMMENDATION FROM DR. CHOW, WILL LOWER DAILY DOSE OF K TO 10 MEQ PO DAILY AND WILL CONTINUE TO HOLD HCTZ FOR QT PROLONGATION. D/C MAGNESIUM-CONTAINING MEDS. FOR ABNORMAL ADMISSION RENAL LAB VALUES. CONTINUE PRN CLONIDINE, 0.1 MG PO FOR HYPERTENSION.
--- NOTE | 2018-05-31 17:26 | PN ---
[facility] Progress Note Note: DUE TO SEVERITY OF LINGERING WITHDRAWAL SYMPTOMS CURRENT BLOOD PRESSURE IRREGULARITY, POSSIBILITY OF REMAINING ON DETOX UNIT AND CONTINUE DETOX UNTIL DISCUSSED WITH PATIENT. PATIENT INDICATES THAT HE PREFERS TO REMAIN UNTIL 06/02/2018, IF POSSIBLE DUE TO LINGERING SYMPTOMS. VALIUM, 5 MG PO ORDERED HS FOR TONIGHT. WILL EVALUATE PATIENT TOMORROW AM DURING DAILY ROUNDS ASSESSMENT TO SEE HOW HE IS DOING THEN BEFORE MAKING FINAL DETERMINATION ABOUT ACTUAL DISCHARGE DATE. PATIENT VERBALIZED UNDERSTANDING AND CONSENT OF THIS PLAN. Emmanuel QUINN NP
[2018-05-31] MEDS: cloNIDine HCL 0.1 MG TABLET PO PRN (17:53)
[2018-05-31] MEDS ORDERED: SIMETHICONE 80 MG TAB.CHEW (FP) PO ONE (21:10)
[2018-05-31] MEDS: THIAMINE HCL 100 MG TABLET (FP) PO SCH (21:34)
[2018-05-31] MEDS: MONTELUKAST NA 10 MG TABLET PO SCH (21:35)
[2018-05-31] MEDS: INSULIN (LEVEMIR) 100 UNITS/ML UNITS SQ SCH (21:35)
[2018-05-31] MEDS: CYCLOBENZAPRINE HCL 5 MG TABLET PO PRN (21:40)
[2018-05-31] MEDS ORDERED: diazePAM 5 MG TABLET PO ONE (22:00)
[2018-06-01] MEDS: metFORMIN HCL 500 MG TABLET (FP) PO SCH ×2 (07:22→17:27)
[2018-06-01] MEDS: PANTOPRAZOLE 40 MG TABLET (FP) PO SCH (07:23)
[2018-06-01] MEDS: INSULIN SLIDING SCALE (NOVOLOG) 1 VIAL SQ SCH ×4 (07:23→21:21)
[2018-06-01] MEDS ORDERED: POTASSIUM CHLORIDE TABS 20 MEQ TABLET.ER (FP) PO SCH (10:00)
[2018-06-01] MEDS ORDERED: diazePAM 5 MG TABLET PO SCH (10:00)
[2018-06-01] MEDS: CLOPIDOGREL BISULFATE 75 MG TABLET (FP) PO SCH (10:04)
[2018-06-01] MEDS: PRENATAL VITAMINS W/ FOLIC ACID TABLET (FP) PO SCH (10:04)
[2018-06-01] MEDS: TIOTROPIUM BROMIDE 2.5 MCG (SPIRIVA) RESPIMAT INHALER IH SCH (10:05)
[2018-06-01] MEDS: BUDESONIDE/FORMETEROL FUMARATE 160/4.5 mcg INHALER IH SCH ×2 (10:05→21:21)
[2018-06-01] MEDS ORDERED: ONDANSETRON *ODT* 4 MG TABLET SL PRN (13:07)
--- NOTE | 2018-06-01 18:47 | PN ---
BHS Progress Note (SOAP) Subjective: Body Aches, Stomach Cramping, Sweating, Nausea. Objective: PATIENT A & O X 3, OBSERVED AMBULATING ON UNIT WITH ASSISTANCE OF A CANE. IN NO ACUTE DISTRESS. 06/01/18 18:44 Vital Signs Temperature 99.7 F H 06/01/18 17:25 Pulse Rate 93 H 06/01/18 17:25 Respiratory Rate 20 06/01/18 17:25 Blood Pressure 122/82 06/01/18 17:25 O2 Sat by Pulse Oximetry (%) Laboratory Tests 05/29/18 05/29/18 05/30/18 17:54 21:17 05:44 WBC RBC Hgb Hct MCV MCH MCHC RDW Plt Count MPV Sodium Potassium Chloride Carbon Dioxide Anion Gap BUN Creatinine Creat Clearance w eGFR POC Glucometer 570 525 111 Random Glucose Calcium Magnesium Total Bilirubin AST ALT Alkaline Phosphatase Total Protein Albumin RPR Titer 05/30/18 05/30/18 05/30/18 07:00 07:00 07:00 WBC 9.7 RBC 4.18 Hgb 11.3 L Hct 32.9 L D MCV 78.7 L MCH 27.2 MCHC 34.5 RDW 15.5 Plt Count 253 MPV 10.5 Sodium 143 Potassium 3.3 L Chloride 104 Carbon Dioxide 30 Anion Gap 9 BUN 22 H Creatinine 1.6 H Creat Clearance w eGFR 45.44 POC Glucometer Random Glucose 90 Calcium 8.5 Magnesium Total Bilirubin 0.2 AST 17 ALT 21 Alkaline Phosphatase 92 Total Protein 5.1 L Albumin 2.1 L RPR Titer Nonreactive 05/30/18 05/30/18 05/30/18 11:12 16:36 20:10 WBC RBC Hgb Hct MCV MCH MCHC RDW Plt Count MPV Sodium Potassium Chloride Carbon Dioxide Anion Gap BUN Creatinine Creat Clearance w eGFR POC Glucometer 95 176 185 Random Glucose Calcium Magnesium Total Bilirubin AST ALT Alkaline Phosphatase Total Protein Albumin RPR Titer 05/31/18 05/31/18 05/31/18 06:14 07:00 11:30 WBC RBC Hgb Hct MCV MCH MCHC RDW Plt Count MPV Sodium 144 Potassium 3.9 Chloride 108 H Carbon Dioxide 29 Anion Gap 7 L BUN 22 H Creatinine 1.5 H Creat Clearance w eGFR 48.95 POC Glucometer 97 149 Random Glucose 82 Calcium 9.0 Magnesium 1.9 Total Bilirubin AST ALT Alkaline Phosphatase Total Protein Albumin RPR Titer 05/31/18 05/31/18 06/01/18 16:59 20:48 05:44 WBC RBC Hgb Hct MCV MCH MCHC RDW Plt Count MPV Sodium Potassium Chloride Carbon Dioxide Anion Gap BUN Creatinine Creat Clearance w eGFR POC Glucometer 128 184 86 Random Glucose Calcium Magnesium Total Bilirubin AST ALT Alkaline Phosphatase Total Protein Albumin RPR Titer 06/01/18 11:53 WBC RBC Hgb Hct MCV MCH MCHC RDW Plt Count MPV Sodium Potassium Chloride Carbon Dioxide Anion Gap BUN Creatinine Creat Clearance w eGFR POC Glucometer 124 Random Glucose Calcium Magnesium Total Bilirubin AST ALT Alkaline Phosphatase Total Protein Albumin RPR Titer LABS NOTED. Assessment: 06/01/18 18:44 WITHDRAWAL SYMPTOMS. Plan: DUE TO LINGERING WITHDRAWAL SYMPTOMS, PATIENT TO REMAIN ON DETOX UNIT FOR FURTHER TREATMENT UNTIL TOMORROW AM. X 1 DOSE OF VALIUM, 5 MG PO ORDERED FOR HS TONIGHT PART OF DETOX PROTOCOL.
[2018-06-01] MEDS: CYCLOBENZAPRINE HCL 5 MG TABLET PO PRN (21:08)
[2018-06-01] MEDS: MONTELUKAST NA 10 MG TABLET PO SCH (21:09)
[2018-06-01] MEDS: cloNIDine HCL 0.1 MG TABLET PO PRN (21:09)
[2018-06-01] MEDS: INSULIN (LEVEMIR) 100 UNITS/ML UNITS SQ SCH (21:09)
[2018-06-01] MEDS: THIAMINE HCL 100 MG TABLET (FP) PO SCH (21:22)
[2018-06-01] MEDS ORDERED: diazePAM 5 MG TABLET PO ONE (22:00)
[2018-06-02] MEDS: PANTOPRAZOLE 40 MG TABLET (FP) PO SCH (06:03)
[2018-06-02] MEDS: INSULIN SLIDING SCALE (NOVOLOG) 1 VIAL SQ SCH (06:04)
[2018-06-02 06:24] VITALS: BP 153/83; PULSE 84; TEMP 97.3
[2018-06-02] MEDS ORDERED: diazePAM 5 MG TABLET PO SCH (10:00)
--- NOTE | 2018-06-02 20:52 | DS ---
[facility] Detox Discharge Summary Admission Date: 05/29/18 Discharge Date: 06/02/18 - History Present History: Alcohol Dependence, Cocaine Dependence Additional Comments: PATIENT GONIG HOME FOR NEXT COUPLE OF DAYS, THEN WILL APPLY FOR ADMISSION AT [facility] OR OUTPATIENT PROGRAM ([place], [place]) ON MONDAY , 06/04/2018. PATIENT ADVISED TO FOLLOW-UP WITH SHELTERED WORKSHOP EXECUTIVE DIRECTOR DR. WOMACK ([place], [place]) WHEN POSSIBLE AFTER DISCHARGE FROM DETOX / REHAB FOR GENERAL MEDICAL ASSESSMENT AND FOR FURTHER EVALUATION OF HISTORY OF HTN, HYPERCHOLESTEROLEMIA, TYPE II DM, AND FOR QT PROLONGATION NOTED ON ADMISSION AND REPEAT ECG'S WHILE ADMITTED FOR DETOX. PATIENT VERBALIZED UNDERSTANDING OF RECOMMENDATION. PATIENT DECLINED OFFER OF MEDICATION PRESCRIPTION FOR HOME MEDICATION AT TIME OF DISCHARGE FROM DETOX, NOTING THAT HE CURRENTLY HAS ADEQUATE SUPPLIES OF ALL PRESCRIBED HOME MEDICATIONS AT HOME. PATIENT WAS DISCHARGED FROM DETOX UNIT IN STABLE MEDICAL CONDITION. Pertinent Past History: HTN, Hypercholesterolemia, C.O.P.D., Asthma, Type II DM, History of Depression, Hypokalemia, Q-T Prolongation on Electrocardiogram, History of Anemia, G.E.R.D. , Nicotine Dependence, Neuropathy, Use of Cane Ambulatory Aid. - Physical Exam Results Vital Signs: Vital Signs Temperature 97.3 F L 06/02/18 06:23 Pulse Rate 84 06/02/18 06:23 Respiratory Rate 16 06/02/18 06:23 Blood Pressure 153/83 06/02/18 06:23 O2 Sat by Pulse Oximetry (%) Pertinent Admission Physical Exam Findings: WITHDRAWAL SYMPTOMS. Laboratory Tests 05/29/18 05/29/18 05/30/18 17:54 21:17 05:44 WBC RBC Hgb Hct MCV MCH MCHC RDW Plt Count MPV Sodium Potassium Chloride Carbon Dioxide Anion Gap BUN Creatinine Creat Clearance w eGFR POC Glucometer 570 525 111 Random Glucose Calcium Magnesium Total Bilirubin AST ALT Alkaline Phosphatase Total Protein Albumin RPR Titer 05/30/18 05/30/18 05/30/18 07:00 07:00 07:00 WBC 9.7 RBC 4.18 Hgb 11.3 L Hct 32.9 L D MCV 78.7 L MCH 27.2 MCHC 34.5 RDW 15.5 Plt Count 253 MPV 10.5 Sodium 143 Potassium 3.3 L Chloride 104 Carbon Dioxide 30 Anion Gap 9 BUN 22 H Creatinine 1.6 H Creat Clearance w eGFR 45.44 POC Glucometer Random Glucose 90 Calcium 8.5 Magnesium Total Bilirubin 0.2 AST 17 ALT 21 Alkaline Phosphatase 92 Total Protein 5.1 L Albumin 2.1 L RPR Titer Nonreactive 05/30/18 05/30/18 05/30/18 11:12 16:36 20:10 WBC RBC Hgb Hct MCV MCH MCHC RDW Plt Count MPV Sodium Potassium Chloride Carbon Dioxide Anion Gap BUN Creatinine Creat Clearance w eGFR POC Glucometer 95 176 185 Random Glucose Calcium Magnesium Total Bilirubin AST ALT Alkaline Phosphatase Total Protein Albumin RPR Titer 05/31/18 05/31/18 05/31/18 06:14 07:00 11:30 WBC RBC Hgb Hct MCV MCH MCHC RDW Plt Count MPV Sodium 144 Potassium 3.9 Chloride 108 H Carbon Dioxide 29 Anion Gap 7 L BUN 22 H Creatinine 1.5 H Creat Clearance w eGFR 48.95 POC Glucometer 97 149 Random Glucose 82 Calcium 9.0 Magnesium 1.9 Total Bilirubin AST ALT Alkaline Phosphatase Total Protein Albumin RPR Titer 05/31/18 05/31/18 06/01/18 16:59 20:48 05:44 WBC RBC Hgb Hct MCV MCH MCHC RDW Plt Count MPV Sodium Potassium Chloride Carbon Dioxide Anion Gap BUN Creatinine Creat Clearance w eGFR POC Glucometer 128 184 86 Random Glucose Calcium Magnesium Total Bilirubin AST ALT Alkaline Phosphatase Total Protein Albumin RPR Titer 06/01/18 06/01/18 06/02/18 11:53 21:05 06:02 WBC RBC Hgb Hct MCV MCH MCHC RDW Plt Count MPV Sodium Potassium Chloride Carbon Dioxide Anion Gap BUN Creatinine Creat Clearance w eGFR POC Glucometer 124 225 59 Random Glucose Calcium Magnesium Total Bilirubin AST ALT Alkaline Phosphatase Total Protein Albumin RPR Titer 06/02/18 07:41 WBC RBC Hgb Hct MCV MCH MCHC RDW Plt Count MPV Sodium Potassium Chloride Carbon Dioxide Anion Gap BUN Creatinine Creat Clearance w eGFR POC Glucometer 97 Random Glucose Calcium Magnesium Total Bilirubin AST ALT Alkaline Phosphatase Total Protein Albumin RPR Titer LABS NOTED. - Treatment Hospital Course: Detox Protocol Followed, Detoxed Safely, Responded well, Discharged Condition Good, Rehab Referral Accepted Patient has Accepted a Rehab Referral to: [facility] ([place], [place]). - Medication Discharge Medications: Ambulatory Orders Gemfibrozil [Lopid -] 600 mg PO BID 03/30/13 Montelukast Na [Singulair -] 10 mg PO HS 03/30/13 metFORMIN HCL [Glucophage] 1,000 mg PO BID 03/30/13 Diltiazem HCl [Cardizem Cd] 240 mg PO DAILY #30 cap.er.24h 08/28/13 Albuterol Sulfate Inhaler - [Ventolin HFA Inhaler -] 2 inh PO Q4H PRN 01/15/14 Insulin Glargine,Hum.rec.anlog [Lantus Solostar PEN -] 50 units SQ HS 01/15/14 Omeprazole [Prilosec (RX)] 40 mg PO DAILY 01/15/14 Gabapentin [Neurontin -] 900 mg PO Q8H 03/15/14 Glipizide [Glucotrol -] 10 mg PO BID 03/15/14 Hydrochlorothiazide [Hctz -] 25 mg PO DAILY 03/15/14 Salmeterol/Fluticasone [Advair 500Mcg/50Mcg] 1 inh PO BID 03/15/14 Tiotropium [place] [Spiriva -] 2 inh PO DAILY 03/15/14 Clonidine HCl [Catapres] 0.2 mg PO BID 07/08/15 Insulin (Novolog) [Novolog] 14 units SQ AC 07/08/15 Loratadine [Claritin -] 10 mg PO DAILY PRN 07/08/15 Blood Sugar Diagnostic [Contour] 1 each MC TID #50 strip 12/16/16 - Diagnosis (1) QT prolongation Status: Acute (2) Nicotine dependence Status: Chronic Qualifiers: Nicotine product type: cigarettes Substance use status: uncomplicated Qualified Code(s): F17.210 - Nicotine dependence, cigarettes, uncomplicated (3) Type II diabetes mellitus Status: Chronic Qualifiers: Diabetes mellitus assisted living administrator insulin use: with correction use Diabetes mellitus complication status: with neurologic complications Diabetes mellitus complication detail: with polyneuropathy Qualified Code(s): E11.42 - Type 2 diabetes mellitus with diabetic polyneuropathy (4) Asthma Status: Chronic Qualifiers: Asthma severity: mild Asthma persistence: intermittent Asthma complication type: uncomplicated Qualified Code(s): J45.20 - Mild intermittent asthma, uncomplicated (5) Alcohol dependence with uncomplicated withdrawal Status: Acute (6) Cocaine dependence, uncomplicated Status: Chronic - AMA Did Patient Leave Against Medical Advice: No
== END 2018-06-02 09:48 | disposition home or self-care (01) | DRG 897 ==
LOC: YASAS 14:14 → Y3N 20:10
PROVIDERS: ADMIT Neuromusculoskeletal Medicine & OMM; ATTEND Neuromusculoskeletal Medicine & OMM
PROC: HZ2ZZZZ Detoxification Services for Substance Abuse Treatment (ICD-10-PCS; principal; 2018-05-29)
DX: F10.230 Alcohol dependence with withdrawal, uncomplicated (principal); F14.20 Cocaine dependence, uncomplicated; F17.210 Nicotine dependence, cigarettes, uncomplicated; I10 Essential (primary) hypertension; E11.42 Type 2 diabetes mellitus with diabetic polyneuropathy; I45.81 Long QT syndrome; J45.20 Mild intermittent asthma, uncomplicated; J44.9 Chronic obstructive pulmonary disease, unspecified; N28.9 Disorder of kidney and ureter, unspecified; D64.9 Anemia, unspecified; E87.6 Hypokalemia; N40.0 Benign prostatic hyperplasia without lower urinary tract symptoms; K21.9 Gastro-esophageal reflux disease without esophagitis; Z88.6 Allergy status to analgesic agent; Z88.8 Allergy status to other drugs, medicaments and biological substances; Z91.14 Patient's other noncompliance with medication regimen; Z79.84 Long term (current) use of oral hypoglycemic drugs
CPT/HCPCS: 36415; 80048; 80053; 82962; 83735; 85027; 86593; 93005; 93010; J0735

== ENCOUNTER 2019-01-29 10:59 | Inpatient (IN) | payer OTHER ==
[2019-01-29 11:45] VITALS: BMI 27.9
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
[2019-01-29] MEDS ORDERED: MAGNESIUM HYDROX 2400MG/30ML ORAL SUSPENSION 30 ML CUP PO PRN (13:55)
[2019-01-29] MEDS ORDERED: guaiFENesin 200 MG/10 ML 10 ML UNIT-DOSE CUPS PO PRN (13:55)
[2019-01-29] MEDS ORDERED: ACETAMINOPHEN 325 MG TABLET (FP) PO PRN (13:55)
[2019-01-29] MEDS ORDERED: P-EPHED 60MG/TRIPROLIDI 2.5MG TABLET PO PRN (13:55)
[2019-01-29] MEDS ORDERED: MENTHOL/PHENOL 1 EACH UD MM PRN (13:55)
[2019-01-29] MEDS ORDERED: MAG HYDROX/AL HYDROX/SIMETH 30 ML UNIT-DOSE CUP PO PRN (13:55)
[2019-01-29] MEDS ORDERED: LOPERAMIDE HCL 2 MG CAPSULE PO PRN (13:55)
[2019-01-29] MEDS ORDERED: MAGNESIUM CITRATE 300 ML BOTTLE PO PRN (13:55)
[2019-01-29] MEDS ORDERED: ALBUTEROL SO4 8 GM HFA INHALER IH PRN (13:58)
--- NOTE | 2019-01-29 15:19 | PN ---
Teaching Attending Note Name of Resident: Tevin Hill ATTENDING PHYSICIAN STATEMENT I saw and evaluated the patient. I reviewed the resident's note and discussed the case with the resident. I agree with the resident's findings and plan as documented. SUBJECTIVE: 52 year old male with etoh use , claims 3-4 days / week 3 x 24 oz cans , 1/2 pint of vodka , denies symptoms on the days he is not drinking , denies blackouts or seizures , denies symptoms at this time . Pt presents as anxious and argumentative to be admitted into the facility . pt declines to discuss rx for Percocet # 180 monthly rx and negative oxycodone toxicology . PMHX diabetes, hypertension, asthma, COPD, GERD, Cocaine: 6g per day, smokes, last used Monday; started using at 13 years old Cigarettes: infrequent Marijuana: since age 9, current use for eye pain Surgery: R ocular surgery sep 18 2017, CABG (2018), L foot surgery (cut bone out of dorsal side of foot) OBJECTIVE: wnwd , ambulating w/ cane , reports did not take BP meds today . Vital Signs - 24 hr 01/29/19 11:36 Temperature 97.6 F Pulse Rate 86 Respiratory 19 Rate Blood Pressure 194/101 H ASSESSMENT AND PLAN:Alcohol dependence , episodic use - latest use 2 days ago , pt agreeable to go to rehab Meds to be verified w/ pharmacy and prescriber - conflicting info , per MR pt w/ 50 units insulin qhs , pt denies , states taking 15 units hs & 20 units in the a.m.
[2019-01-29] MEDS ORDERED: metFORMIN HCL 500 MG TABLET (FP) ONE (16:37)
[2019-01-29] MEDS ORDERED: DOCUSATE SODIUM 100 MG CAPSULE (FP) PO ONE (16:37)
[2019-01-29] MEDS ORDERED: CARVEDILOL 12.5 MG TABLET (FP) ONE (16:38)
[2019-01-29] MEDS ORDERED: CLOPIDOGREL BISULFATE 75 MG TABLET (FP) ONE (16:38)
[2019-01-29] MEDS ORDERED: LOSARTAN POTASSIUM 50 MG TABLET (FP) ONE (16:38)
[2019-01-29] MEDS ORDERED: GABAPENTIN 300 MG CAPSULE (FP) ONE ×2 (16:38→19:51)
[2019-01-29] MEDS: CARVEDILOL 25 MG TABLET (FP) PO SCH (16:53)
[2019-01-29] MEDS: metFORMIN HCL 500 MG TABLET (FP) PO SCH (16:53)
[2019-01-29] MEDS: DOCUSATE SODIUM 100 MG CAPSULE (FP) PO SCH (16:54)
[2019-01-29] MEDS: CLOPIDOGREL BISULFATE 75 MG TABLET (FP) PO SCH (16:55)
[2019-01-29] MEDS: LOSARTAN POTASSIUM 50 MG TABLET (FP) PO SCH (16:55)
[2019-01-29] MEDS: GABAPENTIN 300 MG CAPSULE (FP) PO SCH ×2 (16:56→22:07)
[2019-01-29] MEDS: PANTOPRAZOLE 40 MG TABLET (FP) PO SCH (16:58)
[2019-01-29 17:12] LABS: HEMATOCRIT 33.4 % (35.4-49); HEMOGLOBIN 10.6 GM/dL (11.7-16.9); MCH 25.2 pg (25.7-33.7); MCHC 31.8 g/dl (32.0-35.9); MEAN CELL VOLUME 79.1 fl (80-96); MEAN PLT VOLUME 10.4 fl (7.5-11.1); PLATELET COUNT 302 K/MM3 (134-434); RBC 4.23 M/mm3 (4.00-5.60); RDW 15.8 % (11.9-15.9); WHITE BLOOD COUNT 12.6 K/mm3 (4.0-10.0)
[2019-01-29 17:33] LABS: ALBUMIN 2.5 g/dl (3.4-5.0); BILIRUBIN,TOTAL 0.5 mg/dL (0.2-1); BLOOD UREA NITROGEN 15.2 mg/dL (7-18); CALCIUM 8.5 mg/dL (8.5-10.1); CREATININE 1.7 mg/dL (0.55-1.3); TOT PROT 6.1 g/dl (6.4-8.2)
[2019-01-29] MEDS: INSULIN SLIDING SCALE (NOVOLOG) 1 VIAL SQ SCH ×2 (17:46→22:08)
[2019-01-29] MEDS: ISOSORBIDE MONONITRATE 10 MG TABLET PO SCH (17:51)
[2019-01-29] MEDS ORDERED: ATORVASTATIN CA 80 MG TABLET (FP) ONE (19:51)
[2019-01-29] MEDS ORDERED: MELATONIN 5 MG TABLETS PO PRN (22:00)
[2019-01-29] MEDS: ATORVASTATIN CA 80 MG TABLET (FP) PO SCH (22:07)
[2019-01-29] MEDS: BUDESONIDE/FORMETEROL FUMARATE 160/4.5 mcg INHALER IH SCH (22:08)
[2019-01-29] MEDS: THIAMINE HCL 100 MG TABLET (FP) PO SCH (22:08)
[2019-01-29] MEDS: MONTELUKAST NA 10 MG TABLET PO SCH (22:08)
[2019-01-30] MEDS: GABAPENTIN 300 MG CAPSULE (FP) PO SCH ×3 (06:06→21:52)
[2019-01-30] MEDS: metFORMIN HCL 500 MG TABLET (FP) PO SCH ×2 (06:06→16:32)
[2019-01-30] MEDS: INSULIN SLIDING SCALE (NOVOLOG) 1 VIAL SQ SCH ×4 (07:22→22:00)
[2019-01-30] MEDS: TAMSULOSIN HCL 0.4 MG CAP PO SCH (10:58)
[2019-01-30] MEDS: ISOSORBIDE MONONITRATE 10 MG TABLET PO SCH (10:58)
[2019-01-30] MEDS: LOSARTAN POTASSIUM 50 MG TABLET (FP) PO SCH (10:59)
[2019-01-30] MEDS: CLOPIDOGREL BISULFATE 75 MG TABLET (FP) PO SCH (10:59)
[2019-01-30] MEDS: PRENATAL VITAMINS W/ FOLIC ACID TABLET (FP) PO SCH (10:59)
[2019-01-30] MEDS: DOCUSATE SODIUM 100 MG CAPSULE (FP) PO SCH (10:59)
[2019-01-30] MEDS: CARVEDILOL 25 MG TABLET (FP) PO SCH (10:59)
[2019-01-30] MEDS: PANTOPRAZOLE 40 MG TABLET (FP) PO SCH (10:59)
[2019-01-30] MEDS: BUDESONIDE/FORMETEROL FUMARATE 160/4.5 mcg INHALER IH SCH ×2 (11:01→21:53)
[2019-01-30] MEDS ORDERED: INSULIN (NOVOLOG) ASPART 100 UNITS/ML 10ML VIAL ONE ×2 (11:58→16:13)
[2019-01-30] MEDS: TIOTROPIUM BROMIDE 2.5 MCG (SPIRIVA) RESPIMAT INHALER IH SCH (17:39)
--- NOTE | 2019-01-30 18:35 | PN ---
[facility] Progress Note Note: Mr. Norman is a new patient admitted yesterday 01/29/19 to rehab for KEVIN. Pt c/ o old ulcer to back of neck and right lower leg for about 3 weeks. Pt has an extensive medical hx of HIV+,HTN,HLD,DVT Right leg, Angioplasty with stent. Pt states he is angry at himself for not taking care of himself. Encouraged pt to look to future selfcare of his medical needs going forward instead. Pt reports he has a primary care provider Dr. Rhoades @ [place], [place]. Pt reports he needs to follow up with vascular surgery appointment and has primary care appointment set up for Monday02/05/19. Also reports he has Eye clinic appointment on Monday02/04/19 and would like to leave on Monday to follow up with his medical appointments which will take him about 2 months to be rescheduled if he misses them per patient. Pt reports he takes Spiriva due to his COPD. Vital Signs - 24 hr 01/30/19 01/30/19 01/30/19 00:30 03:30 07:10 Temperature 97.8 F Pulse Rate 80 Respiratory 18 18 18 Rate Blood Pressure 149/84 01/30/19 09:42 Temperature Pulse Rate 85 Respiratory Rate Blood Pressure 115/68 Laboratory Tests 01/29/19 01/29/19 01/29/19 14:12 14:15 14:15 WBC 12.6 H RBC 4.23 Hgb 10.6 L Hct 33.4 L MCV 79.1 L MCH 25.2 L MCHC 31.8 L RDW 15.8 Plt Count 302 MPV 10.4 Sodium 133 L Potassium 4.0 Chloride 99 Carbon Dioxide 27 Anion Gap 7 L BUN 15.2 Creatinine 1.7 H Est GFR (CKD-EPI)AfAm 52.20 Est GFR (CKD-EPI)NonAf 45.04 POC Glucometer 446 Random Glucose 482 H* Calcium 8.5 Total Bilirubin 0.5 AST 16 ALT 18 Alkaline Phosphatase 101 Total Protein 6.1 L Albumin 2.5 L RPR Titer 01/29/19 01/29/19 01/29/19 14:15 16:51 20:34 WBC RBC Hgb Hct MCV MCH MCHC RDW Plt Count MPV Sodium Potassium Chloride Carbon Dioxide Anion Gap BUN Creatinine Est GFR (CKD-EPI)AfAm Est GFR (CKD-EPI)NonAf POC Glucometer 555 205 Random Glucose Calcium Total Bilirubin AST ALT Alkaline Phosphatase Total Protein Albumin RPR Titer Nonreactive 01/30/19 01/30/19 01/30/19 06:05 11:04 16:34 WBC RBC Hgb Hct MCV MCH MCHC RDW Plt Count MPV Sodium Potassium Chloride Carbon Dioxide Anion Gap BUN Creatinine Est GFR (CKD-EPI)AfAm Est GFR (CKD-EPI)NonAf POC Glucometer 258 305 151 Random Glucose Calcium Total Bilirubin AST ALT Alkaline Phosphatase Total Protein Albumin RPR Titer Exam:Right pineda with two areas of old dry ulcer with crusted borders. No redness ,swelling or drainage noted. Back of neck below hairline with dry, crusted bumpy ulcer, no redness or drainage. A/P Ulcers with Scabs on right pineda and back of neck Bacitracin ointment TP BID apply to affected areas as directed. Restart Spiriva 2 puffs IH daily D/w pt to follow up with his counselor GRECIA to discuss aftercare plans as well as his medical follow up plans to foster proper discharge planning. Pt has agreed to this poc.
[2019-01-30] MEDS: BACITRACIN 15 GM TUBE TOPICAL OINTMENT TP SCH (21:51)
[2019-01-30] MEDS: ATORVASTATIN CA 80 MG TABLET (FP) PO SCH (21:52)
[2019-01-30] MEDS: MONTELUKAST NA 10 MG TABLET PO SCH (21:53)
[2019-01-30] MEDS: THIAMINE HCL 100 MG TABLET (FP) PO SCH (21:53)
[2019-01-31] MEDS: metFORMIN HCL 500 MG TABLET (FP) PO SCH ×2 (06:21→16:49)
[2019-01-31] MEDS: GABAPENTIN 300 MG CAPSULE (FP) PO SCH ×3 (06:21→22:15)
[2019-01-31] MEDS ORDERED: INSULIN (NOVOLOG) ASPART 100 UNITS/ML 10ML VIAL ONE ×2 (07:11→12:04)
[2019-01-31] MEDS: INSULIN SLIDING SCALE (NOVOLOG) 1 VIAL SQ SCH ×4 (07:28→22:15)
[2019-01-31] MEDS: TAMSULOSIN HCL 0.4 MG CAP PO SCH (08:34)
[2019-01-31] MEDS: ISOSORBIDE MONONITRATE 10 MG TABLET PO SCH (10:34)
[2019-01-31] MEDS: CLOPIDOGREL BISULFATE 75 MG TABLET (FP) PO SCH (10:35)
[2019-01-31] MEDS: LOSARTAN POTASSIUM 50 MG TABLET (FP) PO SCH (10:35)
[2019-01-31] MEDS: DOCUSATE SODIUM 100 MG CAPSULE (FP) PO SCH (10:35)
[2019-01-31] MEDS: PANTOPRAZOLE 40 MG TABLET (FP) PO SCH (10:35)
[2019-01-31] MEDS: CARVEDILOL 25 MG TABLET (FP) PO SCH (10:35)
[2019-01-31] MEDS: PRENATAL VITAMINS W/ FOLIC ACID TABLET (FP) PO SCH (10:35)
[2019-01-31] MEDS: TIOTROPIUM BROMIDE 2.5 MCG (SPIRIVA) RESPIMAT INHALER IH SCH (10:36)
[2019-01-31] MEDS: BUDESONIDE/FORMETEROL FUMARATE 160/4.5 mcg INHALER IH SCH ×2 (10:36→22:17)
[2019-01-31] MEDS: BACITRACIN 15 GM TUBE TOPICAL OINTMENT TP SCH ×2 (10:36→22:17)
[2019-01-31] MEDS: FERROUS SO4 325 MG TABLET (FP) PO SCH ×2 (12:02→16:49)
[2019-01-31 17:50] LABS: EPI CELLS 1.2 /HPF (0-5/HPF); HYALINE CASTS 3 /lpf (0-8); PH,URINE 5.5 (5.0-8.0); URINE APPEARANCE CLEAR; URINE BACTERIA 11.9 /hpf (NEGATIVE); URINE BILIRUBIN NEGATIVE (NEGATIVE); URINE COLOR YELLOW; URINE GLUCOSE (UA) 2+ (NEGATIVE); URINE KETONE NEGATIVE (NEGATIVE); URINE LEUK ESTERASE NEGATIVE (NEGATIVE); URINE NITRITE NEGATIVE (NEGATIVE); URINE PROTEIN 3+ (NEGATIVE); URINE RBC 3 /hpf (0-4); URINE UROBILINOGEN 0.2 mg/dL (0.2-1.0); URINE WBC 1 /hpf (0-5)
[2019-01-31] MEDS: ATORVASTATIN CA 80 MG TABLET (FP) PO SCH (22:15)
[2019-01-31] MEDS: MONTELUKAST NA 10 MG TABLET PO SCH (22:15)
[2019-01-31] MEDS: THIAMINE HCL 100 MG TABLET (FP) PO SCH (22:17)
[2019-02-01] MEDS: GABAPENTIN 300 MG CAPSULE (FP) PO SCH (06:22)
[2019-02-01] MEDS: metFORMIN HCL 500 MG TABLET (FP) PO SCH (06:24)
[2019-02-01 06:51] VITALS: BP 150/80; PULSE 84; TEMP 97.7
[2019-02-01] MEDS ORDERED: INSULIN (NOVOLOG) ASPART 100 UNITS/ML 10ML VIAL ONE (07:14)
[2019-02-01] MEDS: INSULIN SLIDING SCALE (NOVOLOG) 1 VIAL SQ SCH (07:52)
[2019-02-01] MEDS: FERROUS SO4 325 MG TABLET (FP) PO SCH (07:53)
[2019-02-01] MEDS: TAMSULOSIN HCL 0.4 MG CAP PO SCH (07:54)
--- NOTE | 2019-02-01 09:28 | DS ---
[facility] Rehab Discharge Summary - [facility] Rehab Discharge Summary Admission Date: 01/29/19 Discharge Date: 02/01/19 - History Present History: Alcohol dependence, Cannabis dependence, Cocaine dependence Additional Comments: Pt is a 53 y/o male with a hx of alcohol and cocaine dependence admitted to rehab and requested for early discharge today to follow up with medical appointments on Monday02/04/19 and 02/05/19. Pt met with his counselor and has been referred to CD aftercare at [facility] Program on [address] [place] [address]. Pt has primary care provider Dr. Rhoades at [facility] where he has scheduled for a follow up visit next week. Pertinent Past History: Asthma COPD CAD [place] x 2 Hx Bypass sx x 4 HTN HLD GERD Peripheral Neuropathy hX Chronic leg Ulcers Sciatica - Discharge Physical Exam Vital Signs: Vital Signs Temperature 97.7 F 02/01/19 06:50 Pulse Rate 84 02/01/19 06:50 Respiratory Rate 18 02/01/19 06:50 Blood Pressure 150/80 02/01/19 06:50 O2 Sat by Pulse Oximetry (%) Alert o x 3 nad oob ambulating with steady gait with cane cardiac:s1 s2 rrr lungs:clear to auscultate, johnathon. abdomen:soft,+bs,nt,nd Extremities/Skin:No edema, two areas of chronic healing ulcer to right pineda, dry ,no drainage/redness,full ROM,, Pertinent Admission Physical Exam Findings: Laboratory Tests 01/29/19 01/29/19 01/29/19 14:12 14:15 14:15 WBC 12.6 H RBC 4.23 Hgb 10.6 L Hct 33.4 L MCV 79.1 L MCH 25.2 L MCHC 31.8 L RDW 15.8 Plt Count 302 MPV 10.4 Sodium 133 L Potassium 4.0 Chloride 99 Carbon Dioxide 27 Anion Gap 7 L BUN 15.2 Creatinine 1.7 H Est GFR (CKD-EPI)AfAm 52.20 Est GFR (CKD-EPI)NonAf 45.04 POC Glucometer 446 Random Glucose 482 H* Calcium 8.5 Total Bilirubin 0.5 AST 16 ALT 18 Alkaline Phosphatase 101 Total Protein 6.1 L Albumin 2.5 L Urine Color Urine Appearance Urine pH Ur Specific [place] Urine Protein Urine Glucose (UA) Urine Ketones Urine Blood Urine Nitrite Urine Bilirubin Urine Urobilinogen Ur Leukocyte Esterase Urine WBC (Auto) Urine RBC (Auto) Urine Casts (Auto) U Epithel Cells (Auto) Urine Bacteria (Auto) RPR Titer 01/29/19 01/29/19 01/29/19 14:15 16:51 20:34 WBC RBC Hgb Hct MCV MCH MCHC RDW Plt Count MPV Sodium Potassium Chloride Carbon Dioxide Anion Gap BUN Creatinine Est GFR (CKD-EPI)AfAm Est GFR (CKD-EPI)NonAf POC Glucometer 555 205 Random Glucose Calcium Total Bilirubin AST ALT Alkaline Phosphatase Total Protein Albumin Urine Color Urine Appearance Urine pH Ur Specific [place] Urine Protein Urine Glucose (UA) Urine Ketones Urine Blood Urine Nitrite Urine Bilirubin Urine Urobilinogen Ur Leukocyte Esterase Urine WBC (Auto) Urine RBC (Auto) Urine Casts (Auto) U Epithel Cells (Auto) Urine Bacteria (Auto) RPR Titer Nonreactive 01/30/19 01/30/19 01/30/19 06:05 11:04 16:34 WBC RBC Hgb Hct MCV MCH MCHC RDW Plt Count MPV Sodium Potassium Chloride Carbon Dioxide Anion Gap BUN Creatinine Est GFR (CKD-EPI)AfAm Est GFR (CKD-EPI)NonAf POC Glucometer 258 305 151 Random Glucose Calcium Total Bilirubin AST ALT Alkaline Phosphatase Total Protein Albumin Urine Color Urine Appearance Urine pH Ur Specific [place] Urine Protein Urine Glucose (UA) Urine Ketones Urine Blood Urine Nitrite Urine Bilirubin Urine Urobilinogen Ur Leukocyte Esterase Urine WBC (Auto) Urine RBC (Auto) Urine Casts (Auto) U Epithel Cells (Auto) Urine Bacteria (Auto) RPR Titer 01/30/19 01/31/19 01/31/19 21:08 06:19 11:50 WBC RBC Hgb Hct MCV MCH MCHC RDW Plt Count MPV Sodium Potassium Chloride Carbon Dioxide Anion Gap BUN Creatinine Est GFR (CKD-EPI)AfAm Est GFR (CKD-EPI)NonAf POC Glucometer 131 269 Random Glucose Calcium Total Bilirubin AST ALT Alkaline Phosphatase Total Protein Albumin Urine Color Yellow Urine Appearance Clear Urine pH 5.5 Ur Specific [place] 1.022 Urine Protein 3+ H Urine Glucose (UA) 2+ H Urine Ketones Negative Urine Blood 1+ H Urine Nitrite Negative Urine Bilirubin Negative Urine Urobilinogen 0.2 Ur Leukocyte Esterase Negative Urine WBC (Auto) 1 Urine RBC (Auto) 3 Urine Casts (Auto) 3 U Epithel Cells (Auto) 1.2 Urine Bacteria (Auto) 11.9 RPR Titer 01/31/19 01/31/19 01/31/19 11:58 16:48 20:49 WBC RBC Hgb Hct MCV MCH MCHC RDW Plt Count MPV Sodium Potassium Chloride Carbon Dioxide Anion Gap BUN Creatinine Est GFR (CKD-EPI)AfAm Est GFR (CKD-EPI)NonAf POC Glucometer 220 164 213 Random Glucose Calcium Total Bilirubin AST ALT Alkaline Phosphatase Total Protein Albumin Urine Color Urine Appearance Urine pH Ur Specific [place] Urine Protein Urine Glucose (UA) Urine Ketones Urine Blood Urine Nitrite Urine Bilirubin Urine Urobilinogen Ur Leukocyte Esterase Urine WBC (Auto) Urine RBC (Auto) Urine Casts (Auto) U Epithel Cells (Auto) Urine Bacteria (Auto) RPR Titer 02/01/19 06:13 WBC RBC Hgb Hct MCV MCH MCHC RDW Plt Count MPV Sodium Potassium Chloride Carbon Dioxide Anion Gap BUN Creatinine Est GFR (CKD-EPI)AfAm Est GFR (CKD-EPI)NonAf POC Glucometer 255 Random Glucose Calcium Total Bilirubin AST ALT Alkaline Phosphatase Total Protein Albumin Urine Color Urine Appearance Urine pH Ur Specific [place] Urine Protein Urine Glucose (UA) Urine Ketones Urine Blood Urine Nitrite Urine Bilirubin Urine Urobilinogen Ur Leukocyte Esterase Urine WBC (Auto) Urine RBC (Auto) Urine Casts (Auto) U Epithel Cells (Auto) Urine Bacteria (Auto) RPR Titer Status stable and Unchanged from admission to rehab - Treatment Discharge Condition: Discharge condition good Hospital Course: Safety maintained while in Rehab pt accepted CD aftercare referral - Medication Discharge Medications: Ambulatory Orders Montelukast Na [Singulair -] 10 mg PO HS 03/30/13 metFORMIN HCL [Glucophage] 1,000 mg PO BID 03/30/13 Gabapentin [Neurontin -] 300 mg PO TID 03/15/14 Salmeterol/Fluticasone [Advair 500Mcg/50Mcg] 1 inh PO BID 03/15/14 Albuterol Sulfate Inhaler - [Ventolin Hfa Inhaler -] 1 - 2 inh PO Q4H PRN Atorvastatin Ca [Lipitor] 80 mg PO HS 01/29/19 Carvedilol [Coreg -] 25 mg PO DAILY 01/29/19 Clopidogrel Bisulfate [Plavix -] 75 mg PO DAILY 01/29/19 Docusate Sodium [Colace -] 100 mg PO DAILY 01/29/19 Esomeprazole Magnesium 40 mg PO DAILY 01/29/19 Esomeprazole Magnesium [Nexium 24Hr] 40 mg PO DAILY 01/29/19 Insulin (Novolog 70/30) [Novolog Mix 70/30 Vial] 50 unit SQ DAILY 01/29/19 Isosorbide Mononitrate [Ismo -] 10 mg PO DAILY 01/29/19 Losartan Potassium [Cozaar -] 50 mg PO DAILY 01/29/19 Oxycodone HCl/Acetaminophen [Percocet 10-325 mg Tablet] 1 each PO Q6H PRN Tamsulosin HCl [Flomax] 0.4 mg PO DAILY 01/29/19 Umeclidinium [place] [Incruse Ellipta] 62.5 mcg IH DAILY 01/29/19 Tiotropium [place] [Spiriva] 1 puff IH DAILY 01/30/19 Ferrous Sulfate [Feosol] 325 mg PO DAILY #30 ud 02/01/19 - Medication-Assisted Treatment (MAT) Medication-Assisted Treatment (MAT): No - Discharge Instructions Diet, activity, other medical instructions: Diet:Low salt, no concentrated sweets diet Activity:oob ad norma Other medical instructions: Follow up with primary care provider Dr. Carcamo for medical management as scheduled on 02/04/19 and 02/05/19. Follow up with CD aftercare recommendation as above . - Diagnosis (1) Alcohol dependence Status: Chronic Qualifiers: Substance use status: uncomplicated Qualified Code(s): F10.20 - Alcohol dependence, uncomplicated (2) Cocaine dependence, uncomplicated Status: Chronic (3) Anemia Status: Acute Qualifiers: Anemia type: iron deficiency (4) Cannabis dependence Status: Chronic (5) Asthma Status: Chronic Qualifiers: Asthma severity: mild Asthma persistence: intermittent Asthma complication type: uncomplicated Qualified Code(s): J45.20 - Mild intermittent asthma, uncomplicated (6) BPH (benign prostatic hyperplasia) Status: Chronic Qualifiers: Lower urinary tract symptom presence: symptoms present Lower urinary tract symptom detail: post-void dribbling Qualified Code(s): N40.1 - Benign prostatic hyperplasia with lower urinary tract symptoms; N39.43 - Post-void dribbling (7) COPD (chronic obstructive pulmonary disease) Status: Chronic Qualifiers: COPD type: emphysema Emphysema type: unilateral Qualified Code(s): J43.0 - Unilateral pulmonary emphysema [MacLeod's syndrome] (8) Essential hypertension Status: Chronic (9) Gastroesophageal reflux disease Status: Chronic Qualifiers: Esophagitis presence: without esophagitis Qualified Code(s): K21.9 - Gastro -esophageal reflux disease without esophagitis (10) Hypercholesteremia Status: Chronic (11) Neuropathy Status: Chronic (12) Nicotine dependence Status: Chronic Qualifiers: Nicotine product type: cigarettes Substance use status: uncomplicated Qualified Code(s): F17.210 - Nicotine dependence, cigarettes, uncomplicated (13) Type II diabetes mellitus Status: Chronic Qualifiers: Diabetes mellitus terminal superintendent insulin use: with terminal superintendent use Diabetes mellitus complication status: with neurologic complications Diabetes mellitus complication detail: with polyneuropathy Qualified Code(s): E11.42 - Type 2 diabetes mellitus with diabetic polyneuropathy (14) Use of cane as ambulatory aid Status: Chronic - AMA Did Patient Leave Against Medical Advice: No
[2019-02-01] MEDS: PRENATAL VITAMINS W/ FOLIC ACID TABLET (FP) PO SCH (09:41)
[2019-02-01] MEDS: PANTOPRAZOLE 40 MG TABLET (FP) PO SCH (09:41)
[2019-02-01] MEDS: CLOPIDOGREL BISULFATE 75 MG TABLET (FP) PO SCH (09:42)
[2019-02-01] MEDS: BACITRACIN 15 GM TUBE TOPICAL OINTMENT TP SCH (09:42)
[2019-02-01] MEDS: CARVEDILOL 25 MG TABLET (FP) PO SCH (09:42)
[2019-02-01] MEDS: DOCUSATE SODIUM 100 MG CAPSULE (FP) PO SCH (09:42)
[2019-02-01] MEDS: LOSARTAN POTASSIUM 50 MG TABLET (FP) PO SCH (09:42)
[2019-02-01] MEDS: ISOSORBIDE MONONITRATE 10 MG TABLET PO SCH (09:44)
[2019-02-01] MEDS: TIOTROPIUM BROMIDE 2.5 MCG (SPIRIVA) RESPIMAT INHALER IH SCH (09:47)
[2019-02-01] MEDS: BUDESONIDE/FORMETEROL FUMARATE 160/4.5 mcg INHALER IH SCH (09:47)
== END 2019-02-01 10:40 | disposition home or self-care (01) | DRG 895 ==
LOC: YASAS 10:59 → Y5N 14:23
PROVIDERS: ADMIT Surgery; ATTEND Surgery
PROC: HZ42ZZZ Group Counseling for Substance Abuse Treatment, Cognitive-Behavioral (ICD-10-PCS; principal; 2019-01-29)
DX: F10.20 Alcohol dependence, uncomplicated (principal); F14.20 Cocaine dependence, uncomplicated; L97.811 Non-pressure chronic ulcer of other part of right lower leg limited to breakdown of skin; F17.210 Nicotine dependence, cigarettes, uncomplicated; F32.9 Major depressive disorder, single episode, unspecified; I25.10 Atherosclerotic heart disease of native coronary artery without angina pectoris; I10 Essential (primary) hypertension; Z95.1 Presence of aortocoronary bypass graft; I25.2 Old myocardial infarction; E11.42 Type 2 diabetes mellitus with diabetic polyneuropathy; Z79.4 Long term (current) use of insulin; E78.00 Pure hypercholesterolemia, unspecified; E78.5 Hyperlipidemia, unspecified; K21.9 Gastro-esophageal reflux disease without esophagitis; J43.9 Emphysema, unspecified; J45.20 Mild intermittent asthma, uncomplicated; N40.1 Benign prostatic hyperplasia with lower urinary tract symptoms; N39.43 Post-void dribbling; D50.9 Iron deficiency anemia, unspecified; Z99.89 Dependence on other enabling machines and devices
CPT/HCPCS: 36415; 80053; 81003; 82962; 85027; 86593